=== PATIENT | female | born 1990 | race Caucasian/White ===

== ENCOUNTER 2021-10-15 19:25 | Emergency (ER) | payer MEDICAID ==
[~2021-10-15] VITALS: Ht 154.9 cm; Wt 73.9 kg
--- NOTE | 2021-10-15 19:30 | NUR ---
Savannah rowan in [facility] - 10/15/21 at [email or web address] Garcia evaluating patient at bedside
--- NOTE | 2021-10-15 19:46 | NUR ---
Patient to ER bed tent 1 to gown for evaluation. Side rails up.
[2021-10-15 19:48] VITALS: BP_SYST 112
--- NOTE | 2021-10-15 19:48 | NUR ---
Dr Garcia evaluating patient in the tent with myself as shaperon
--- NOTE | 2021-10-15 19:48 | NUR ---
Pt brought by family , A&Ox4, pt presents to ER with L breast pain /redness after , pt also c/o nasal congestion, pt afebrile, skin pink and warm, cap refill <3.
[2021-10-15] MEDS ORDERED: PSEU30TA36 PO (20:42)
[2021-10-15] MEDS ORDERED: CEPH250C PO (20:42)
[2021-10-15] MEDS ORDERED: IBUP-1969 PO (20:42)
[2021-10-15 20:51] VITALS: BP_SYST 112
--- NOTE | 2021-10-15 20:52 | NUR ---
Patient given written and verbal discharge instructions and verbalizes understanding. ER MD discussed with patient the results and treatment provided. Patient in stable condition. ID arm band removed. Rx of Keflex, sudafed, Ibuprofen given. Patient educated on pain management and to follow up with PMD. Pain Scale 2/10 . Opportunity for questions provided and answered. Medication side effect fact sheet provided.
== END 2021-10-15 20:51 | disposition home or self-care (01) ==
LOC: SED 19:25
DX: J40 Bronchitis, not specified as acute or chronic (principal); N61.0 Mastitis without abscess; Z79.899 Other long term (current) drug therapy
CPT/HCPCS: 71045; 99283; 99284